=== PATIENT | female | born 1940 | race Caucasian/White ===

== ENCOUNTER 2016-09-01 10:30 | Outpatient (CLI) | END 2016-09-01 10:31 | disposition home or self-care (01) | LOC: AMBL 10:30 | PROVIDERS: ATTEND Family Medicine | DX: R53.1 Weakness (principal); Z96.652 Presence of left artificial knee joint ==

== ENCOUNTER 2018-03-13 08:00 | Outpatient (RCR) ==
[2017-06-13 20:18] VITALS: BMI 43.9
--- NOTE | 2018-02-25 14:18 | RS.OPPTEV2 ---
Date of Note: 02/25/18 Visit #: 1 Date of Evaluation: 02/25/18 Payer Source: MEDICARE Surgery Performed?: No Treatment Diagnosis: unsteady gait History of Condition/Mechanism of Injury:: pt reports she has had 2 "bad" falls since . pt states she feels like she is unsteady and very fearful of falling. Prior Level of Function.....Patient was independent with: ADL's, Self Care, Caregiving, Ambulation/Mobility, Community Integration/Access Level of Function: pt amb independently without AD, independent with ADL's Functional Limitations: Sleep, Carrying, Squatting, Ambulation, Community Access /Integration Current Subjective/complaints:: pt states that she feels like she walks like a "duck" and can only walk short distances until she feels like she may fall. Treatment Side (optional): N/A *Precautions: n/a Medical History Medical History: Arthritis Medical History Comments:: anxiety, depression, chronic LBP, Surgical History: Knee Replacement, Cholecystectomy, Hysterectomy Surgical History Comments:: ankle sx, kidney sx Smoking Status: Former smoker Diagnostic Testing/Imaging:: n/a Hx Home Medications: vitamin D, melatonin Patient's Goals: to be able to step up/down from curb and not walk like a duck Functional Outcome Measure Dynamic Gait: 11 (54%) - G Codes & Severity Modifier G Codes & Modifier: mobility: walking and moving around current CK. mobility: walking and moving around goal CI Source of G Code score: dynamic gait index Observation - Observation Inspection: pt with muscle tightness in trunk rotation muscles. Posture: Forward Head, Rounded Shoulders, Increased Thoracic Kyphosis, Decreased Lumbar Lordosis Handedness: Right Gait - Gait Pattern General Gait Pattern Observation: Lateral Trunk Lean Gait Comments: pt amb with increased lat sway, decreased step length, decreased heel strike/toe off pattern General Range of Motion: WFL's Muscle Strength: BUE shld flex 4-/5, elbow flex/ext 4+/5. BLE grossly 4+/5 Palpation Palpation Findings: Tenderness Comments:: R lumbar area Sensation - Sensation Right Upper Extremity: Intact/Normal Left Upper Extremity: Intact/Normal Right Lower Extremity: Intact/Normal Left Lower Extremity: Intact/Normal Balance - Sitting Balance Static Sitting Balance: Good Dynamic Sitting Balance: Good - Standing Balance Static Standing Balance: Good Dynamic Standing Balance: Fair - Comments Balance Assessment Comments: pt with increased lat sway and decreased heel strike/toe off gait pattern. Interventions - Exercise/Activities/Manual Therapy Exercises/Activities: pt performed PF, resisted hip abd, resisted hip flex with green t band, isometric hip add x 5 Manual Therapy: n/a HOME EXERCISE PROGRAM: pt given written HEP including: isometric hip add, resisted hip flex, resisted hip abd, PF with green t band - Charges Timed Code Treatment Minutes: 41 Total Treatment Time: 50 Procedures billed for this date of service:: eval low, EVALUATION COMPLEXITY LEVEL EVALUATION COMPLEXITY LEVEL: HISTORY: Low (OA), EXAM OF BODY SYSTEMS: Medium ( gait, balance, posture), CLINICAL PRESENTATION: Medium (evolving), CLINICAL DECISION MAKING: Medium Assessment Assessment: pt presents with decreased strength, balance, gait as well as posture, limiting functional mobility. 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 Goal to be met by: 04/08/18 Goal #2: pt amb up/down step/community curb with no handrail independently Goal to be met by: 04/08/18 Goal #3: pt with improved dyn gait index Goal to be met by: 04/08/18 Goal #4: pt with no reports of falls Goal to be met by: 04/08/18 Plan - Treatment to be Provided Procedures: Therapeutic Exercises, Therapeutic Activity, Gait Training, Patient Education Modalities: No Modalities - Treatment Plan Frequency: 2 X week Duration: 6 weeks ORDER # VISITS AND/OR THROUGH DATE: 04/08/18 - Treatment Code (1) Unsteady gait Code(s): R26.81 - UNSTEADINESS ON FEET (2) General weakness Code(s): R53.1 - WEAKNESS (3) Impairment of balance Code(s): R26.89 - OTHER ABNORMALITIES OF GAIT AND MOBILITY
--- NOTE | 2018-02-27 09:21 | RS.OPPTDN ---
Subjective Date of Note: 02/27/18 Visit #: 2 Date of Evaluation: 02/25/18 Payer Source: MEDICARE Treatment Diagnosis: unsteady gait Current Subjective/complaints:: Patient reports shuffling her feet often due to fear of falling ,also has lumbar aching walking longer distances. *Precautions: n/a Interventions - Exercise/Activities/Manual Therapy Exercises/Activities: 45 mins. toal of LE strengthening ,beginning with ankle dorsiflexion with green t-band,SAQ's with 4 # ,LAQ's with 4 # ,seated hip flexion initially with 4# ,reduced to 2.5 # due to back pain.Isometric hip aduction ( ball squeeze ),hip abduction in sitting with green t-band.Each exercise today 3/ -15 reps. Total minutes of Exercise: 45 Manual Therapy: n/a Total minutes of Manual Therapy: 0 HOME EXERCISE PROGRAM: pt given written HEP including: isometric hip add, resisted hip flex, resisted hip abd, PF with green t band - Charges Timed Code Treatment Minutes: 45 Total Treatment Time: 45 Procedures billed for this date of service:: ex 3 Assessment: Patient tolerates exerciss well,does have back pain with seated hip flexion ,which improved with methods engineer resistance given.Her gait has decreased foot clearance,increased lateral trunk sway to compensate for decreased knee flexion.She is attentive and motivated to improve. Patient Education: Education of diagnosis, Body/Joint mechanics, Home Exercise Program, Home Safety, Activity Modification, Education of Plan of Care Patient demonstrates compliance with HEP?: Yes Short Term Goals Goal #1: Demonstrate improved gait sequencing decreased lat sway,improve heel strike Goal to be met by: 03/18/18 Goal #2: Improved strength BLE 4+/5-5/5 Goal to be met by: 03/18/18 Goal #3: pt independent with initial HEP Goal to be met by: 03/18/18 Progress towards Goal:: Progressing Goal #4: pt with improved balance as noted by improved dyn gait index of Goal to be met by: 03/18/18 Snf Goals Goal #1: 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
--- NOTE | 2018-03-03 08:48 | RS.OPPTDN ---
Subjective Date of Note: 03/03/18 Visit #: 3 Date of Evaluation: 02/25/18 Payer Source: MEDICARE Treatment Diagnosis: unsteady gait Current Subjective/complaints:: Patient reports no difficulty after last session.She does feel she did too much yesterday,c/o muscle soreness in both LE' s. *Precautions: n/a Pain Assessment - Pain Description Current Pain Intensity: 0 Interventions - Exercise/Activities/Manual Therapy Exercises/Activities: 45 mins. total ,beginning with 5 mins. on exercise bike , thebn leg press ,3/15 reps each @ 30 # ,then 45#.Calf -raises @ 15 # ,also 3/15 .Isometric hip abd /adduction in seated position. Total minutes of Exercise: 45 Manual Therapy: n/a HOME EXERCISE PROGRAM: pt given written HEP including: isometric hip add, resisted hip flex, resisted hip abd, PF with green t band - Charges Timed Code Treatment Minutes: 40 Total Treatment Time: 45 Procedures billed for this date of service:: ex 3 Assessment: Tolerates exercises well today.Cues needed to control speed of eccentric motions as she fatigues.She has no report of LE pain ,just tightness and fatigue.She is highly motivated to improve. Patient Education: Body/Joint mechanics, Home Exercise Program, Activity Modification, Education of Plan of Care Patient demonstrates compliance with HEP?: Yes Short Term Goals Goal #1: Demonstrate improved gait sequencing decreased lat sway,improve heel strike Goal to be met by: 03/18/18 Progress towards Goal:: Progressing Goal #2: Improved strength BLE 4+/5-5/5 Goal to be met by: 03/18/18 Progress towards Goal:: Progressing Goal #3: pt independent with initial HEP Goal to be met by: 03/18/18 Progress towards Goal:: Progressing Goal #4: pt with improved balance as noted by improved dyn gait index of Goal to be met by: 03/18/18 Progress towards Goal:: 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 PT to increase trunk/LE strength for safer gait.
--- NOTE | 2018-03-06 09:03 | RS.OPPTDN ---
Subjective Date of Note: 03/06/18 Visit #: 4 Date of Evaluation: 02/25/18 Payer Source: MEDICARE Treatment Diagnosis: unsteady gait Current Subjective/complaints:: reports muscle soreness only after last session ,no pain present today. *Precautions: n/a Pain Assessment - Pain Description Current Pain Intensity: 0 Other Comments regarding Pain:: muscle soremess only after exercises Interventions - Exercise/Activities/Manual Therapy Exercises/Activities: 45 mins. total ,beginning with 5 mins. on exercise bike , then leg press ,3/15 reps each @ 30 # , 45#, and 60 # 3/15 .Isometric hip abd / adduction in seated position.Ball squeezes also for hip adductor strengthening, manually resisted hip abductors. Total minutes of Exercise: 45 Manual Therapy: n/a Total minutes of Manual Therapy: 0 HOME EXERCISE PROGRAM: pt given written HEP including: isometric hip add, resisted hip flex, resisted hip abd, PF with green t band - Charges Timed Code Treatment Minutes: 45 Total Treatment Time: 50 Procedures billed for this date of service:: ex 3 Assessment: Patient has increased strength in LE's ,tolerates increased resistance without c/o pain today.She has steadier transfers ,less trunk sway as she exits clinic today.She is very motivated to improve. Patient Education: Education of diagnosis, Body/Joint mechanics, Home Exercise Program, Home Safety, Activity Modification, Education of Plan of Care Short Term Goals Goal #1: Demonstrate improved gait sequencing decreased lat sway,improve heel strike Goal to be met by: 03/18/18 Progress towards Goal:: Progressing Goal #2: Improved strength BLE 4+/5-5/5 Goal to be met by: 03/18/18 Progress towards Goal:: Partially Met Goal #3: pt independent with initial HEP Goal to be met by: 03/18/18 Progress towards Goal:: Progressing Goal #4: pt with improved balance as noted by improved dyn gait index of Goal to be met by: 03/18/18 Progress towards Goal:: Progressing 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
--- NOTE | 2018-03-11 09:09 | RS.OPPTDN ---
Subjective Date of Note: 03/11/18 Visit #: 5 Date of Evaluation: 02/25/18 Payer Source: MEDICARE Treatment Diagnosis: unsteady gait Current Subjective/complaints:: Patient repors feeling better,feels the therapy is helping her legs.She also went to chiropractor for her neck. *Precautions: n/a Interventions - Exercise/Activities/Manual Therapy Exercises/Activities: 55 mins. total ,beginning on BIODEX BALANCE SYSTEM for postural stability and weight shifting ,then leg press ,3/15 reps each @ , 45# , and 60 # 3/15 .Gait assessment for weight shifting and heel strike. Total minutes of Exercise: 55 Manual Therapy: n/a Total minutes of Manual Therapy: 0 HOME EXERCISE PROGRAM: pt given written HEP including: isometric hip add, resisted hip flex, resisted hip abd, PF with green t band - Charges Timed Code Treatment Minutes: 55 Total Treatment Time: 60 Procedures billed for this date of service:: NMR 2,ex 2 Assessment: Progressing well,has improved heel stike when walking in socks ,but wears shoes with out a back in them,recommended different shoes to improve gait safety.She has increased LE strength .She is highly motivated to improve. Patient Education: Education of diagnosis, Body/Joint mechanics, Home Exercise Program, Home Safety, Activity Modification, Education of Plan of Care Patient demonstrates compliance with HEP?: Yes Short Term Goals Goal #1: Demonstrate improved gait sequencing decreased lat sway,improve heel strike Goal to be met by: 03/18/18 Progress towards Goal:: Progressing Goal #2: Improved strength BLE 4+/5-5/5 Goal to be met by: 03/18/18 Progress towards Goal:: Partially Met Goal #3: pt independent with initial HEP Goal to be met by: 03/18/18 Progress towards Goal:: Progressing Goal #4: pt with improved balance as noted by improved dyn gait index of Goal to be met by: 03/18/18 Progress towards Goal:: Progressing 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
--- NOTE | 2018-03-13 09:16 | RS.OPPTDN ---
Subjective Date of Note: 03/13/18 Visit #: 6 Date of Evaluation: 02/25/18 Payer Source: MEDICARE Treatment Diagnosis: unsteady gait Current Subjective/complaints:: Patient reports it si becoming easier to go up steps,feels the therapy is helping,no recent falls. *Precautions: n/a Interventions - Exercise/Activities/Manual Therapy Exercises/Activities: 40 mins. total ,beginning with standing balance exercises of side-stepping with supervision,marching in place with progressing to marching as she walks , with hand hold assist of1.Seated exercises of isometric hip abd/add using small therapy ball.Ended session on leg press for 3/15 reps. @ 45# and 60 #. Total minutes of Exercise: 40 Manual Therapy: n/a Total minutes of Manual Therapy: 0 HOME EXERCISE PROGRAM: pt given written HEP including: isometric hip add, resisted hip flex, resisted hip abd, PF with green t band - Charges Timed Code Treatment Minutes: 40 Total Treatment Time: 40 Procedures billed for this date of service:: NMR,ex 2 Assessment: Progressing well,has increased LE strength ,steadier transfers and gait ,improved heel strike.She is attentive and motivated to improve. Patient Education: Education of diagnosis, Body/Joint mechanics, Home Exercise Program, Home Safety, Activity Modification, Education of Plan of Care Patient demonstrates compliance with HEP?: Yes Short Term Goals Goal #1: Demonstrate improved gait sequencing decreased lat sway,improve heel strike Goal to be met by: 03/18/18 Progress towards Goal:: Progressing Goal #2: Improved strength BLE 4+/5-5/5 Goal to be met by: 03/18/18 Progress towards Goal:: Partially Met Goal #3: pt independent with initial HEP Goal to be met by: 03/18/18 Progress towards Goal:: Progressing Goal #4: pt with improved balance as noted by improved dyn gait index of Goal to be met by: 03/18/18 Progress towards Goal:: Progressing Skilled Nursing Goals Goal #1: 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
== END 2018-03-18 23:59 ==
PROVIDERS: ATTEND Physician Assistant
DX: R26.89 Other abnormalities of gait and mobility (principal); R26.81 Unsteadiness on feet; R53.1 Weakness

== ENCOUNTER 2018-03-24 08:00 | Outpatient (RCR) ==
[2017-06-13 20:18] VITALS: BMI 43.9
--- NOTE | 2018-03-19 08:55 | RS.OPPTDN ---
Subjective Date of Note: 03/19/18 Visit #: 7 Date of Evaluation: 02/25/18 Payer Source: MEDICARE Treatment Diagnosis: unsteady gait Current Subjective/complaints:: Pleased with her progress,also bought new walking shoes with better support and enclosed heel.She walked alot over the weekend ,no recent falls. *Precautions: n/a Interventions - Exercise/Activities/Manual Therapy Exercises/Activities: 40 mins. total Began on Muse BALANCE SYSTEM for postural stability,weight shift and limits of stability.Ended session on leg press for 3/15 reps. @ 45# and 60 #. Total minutes of Exercise: 60 Manual Therapy: n/a Total minutes of Manual Therapy: 0 HOME EXERCISE PROGRAM: pt given written HEP including: isometric hip add, resisted hip flex, resisted hip abd, PF with green t band - Charges Timed Code Treatment Minutes: 40 Total Treatment Time: 40 Procedures billed for this date of service:: NMR,ex 2 Assessment: Progrsing well,increased LE strength ,improved tranfers and gait , including on even and uneven surfaces.She continues to be highly motivated to improve ,compliant to all recommendations. Patient Education: Body/Joint mechanics, Home Exercise Program, Home Safety, Education of Plan of Care Patient demonstrates compliance with HEP?: Yes Short Term Goals Goal #1: Demonstrate improved gait sequencing decreased lat sway,improve heel strike Goal to be met by: 03/18/18 Progress towards Goal:: Partially Met Goal #2: Improved strength BLE 4+/5-5/5 Goal to be met by: 03/18/18 Progress towards Goal:: Partially Met Goal #3: pt independent with initial HEP Goal to be met by: 03/18/18 Progress towards Goal:: Partially Met Goal #4: pt with improved balance as noted by improved dyn gait index of Goal to be met by: 03/18/18 Progress towards Goal:: 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
--- NOTE | 2018-03-24 09:08 | RS.OPPTDN ---
Subjective Date of Note: 03/24/18 Visit #: 8 Date of Evaluation: 02/25/18 Payer Source: MEDICARE Treatment Diagnosis: unsteady gait Current Subjective/complaints:: Patient pleased with he rprogress,agrees with D/ C plan today as she feels comfortable with HERP ,no recent falls,feels much better. *Precautions: n/a Interventions - Exercise/Activities/Manual Therapy Exercises/Activities: 45 mins. total ,including balance exerises of side steps, 360 turns,high steps ,walking combined with cervical rotation /extension.Ended session on leg press ,3/15 each with 45 #,then 60 #. Total minutes of Exercise: 45 Manual Therapy: n/a Total minutes of Manual Therapy: 0 HOME EXERCISE PROGRAM: pt given written HEP including: isometric hip add, resisted hip flex, resisted hip abd, PF with green t band - Charges Timed Code Treatment Minutes: 45 Total Treatment Time: 50 Procedures billed for this date of service:: ex 3 Assessment: Patient progressed well,met or partially met rehab goals.She has steady gait,good understanding of HEP. 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
--- NOTE | 2018-03-26 14:12 | RS.OPPTDC ---
Date of Discharge: 03/24/18 Date of Evaluation: 02/25/18 Number of Visits: 8 Treatment Diagnosis: unsteady gait Current Level of Function: LE strength 5-/5, no falls reported, up/down curb independently and safe. only min trunk sway noted with gait. Current Complaints/Gains: pt is pleased with progress. No falls and her legs feel stronger. Functional Outcome Measure Dynamic Gait: 20 (17%) - G Codes & Severity Modifier G Codes & Modifier: mobility walking and moving around goal CI. mobility walking and moving around dc CI Source of G Code score: dyn gait index Observation - Observation Posture: Forward Head, Rounded Shoulders, Increased Thoracic Kyphosis, Decreased Lumbar Lordosis Gait - Gait Pattern Gait Comments: pt gait has improved with now only minimal trunk sway. pt able to up/down curb independently. No falls reported General Range of Motion: WFL's Muscle Strength: WFL's Interventions - Exercise/Activities/Manual Therapy Exercises/Activities: n/a Manual Therapy: n/a - Charges Timed Code Treatment Minutes: n/a Total Treatment Time: n/a Procedures billed for this date of service:: n/a Assessment Assessment: pt has met all goals. Much improved with gait sequencing as well as with only min trunk sway Patient Education: Home Exercise Program, Education of Plan of Care Rehab Potential: Good Short Term Goals Goal #1: Demonstrate improved gait sequencing decreased lat sway,improve heel strike Goal to be met by: 03/18/18 Progress towards Goal:: Met Goal #2: Improved strength BLE 4+/5-5/5 Goal to be met by: 03/18/18 Progress towards Goal:: Met Goal #3: pt independent with initial HEP Goal to be met by: 03/18/18 Progress towards Goal:: Met Goal #4: pt with improved balance as noted by improved dyn gait index of Goal to be met by: 03/18/18 (score 20) Progress towards Goal:: Met 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
== END 2018-04-18 23:59 ==
PROVIDERS: ATTEND Physician Assistant
DX: R26.89 Other abnormalities of gait and mobility (principal)